=== PATIENT | female | born 1965 | race African-American/Black ===

== ENCOUNTER → 2017-01-13 | Day surgery (SDC) | payer BC, MEDICARE ==
[~2017-01-13] MED LIST: ATOR20TA PO; BYSTOLIC20 MG PO; DAPA10TA PO; IV RINGERS,LACTATED 1000ML 1,000 ML IV SCH; IVAB5TAB PO; LIDOCAINE 1% PF 2 ML VIAL. ID PRN; LIRA0.6P2 SQ; METF-620 PO; MIDAZOLAM HCL/PF 2 MG/2 ML VIAL. IV PRN; PANT20TA2 PO; PROPOFOL 20 ML IV ONE; PROPOFOL 40 ML IV ONE; fentaNYL PF VIAL 100 MCG/2 ML VIAL IV PRN
[2017-01-13 12:26] VITALS: BP 123/87
--- NOTE | 2017-01-14 17:10 | PATHOLOGY ---
PATHOLOGY REPORT * * * * * * * * FINAL DIAGNOSIS: A. Small bowel biopsy: - No significant pathologic abnormalities. B. Gastric antral biopsy: - Chronic gastritis, mild. C. Distal esophagus biopsy: - Segments of hyperplastic squamous esophageal mucosa, esophagogastric mucosa, and gastric mucosa showing chronic inflammation, consistent with reflux esophagitis. D. Mid esophagus biopsy: - Segment of squamous esophageal mucosa identified. E. Terminal ileum biopsy: - No significant pathologic abnormalities. F. Colon biopsy, cecum: - Focally hyperplastic mucosal-associated lymphoid aggregates. G. Colon biopsy, ascending colon polyp: - Consistent with prominent fold. H. Colon biopsies, transverse colon: - Several hyperplastic mucosal-associated lymphoid aggregates. I. Colon biopsies, descending colon: - No significant pathologic abnormalities. J. Colon biopsies, sigmoid colon: - No significant pathologic abnormalities. K. Rectal biopsies: - Diminutive hyperplastic polyp. COMMENT: Sections of the small bowel biopsy reveal segments of duodenal mucosa containing a single mucosal-associated lymphoid aggregate. There are no sprue-like changes or significant inflammatory changes. Sections of the gastric antral biopsy reveal gastric antral/body transition mucosa showing congestion and mild chronic inflammation. An immunoperoxidase stain for Helicobacter is obtained. No Helicobacter organisms are identified. Sections of the distal esophageal biopsy reveal segments of hyperplastic squamous esophageal mucosa, esophagogastric mucosa and gastric mucosa showing mild to moderate chronic inflammation. The findings are consistent with reflux. There is no evidence of Poon's change, dysplasia, or malignancy. Sections of the mid esophagus biopsy reveal a small segment of squamous esophageal mucosa showing no significant pathologic abnormalities. Sections of the terminal ileum biopsy reveal small intestine mucosa showing no sprue-like changes or significant inflammatory changes. Sections of the cecal biopsy reveal segments of colonic mucosa containing several focally hyperplastic mucosal-associated lymphoid aggregates. Sections of the ascending colon polyp biopsy reveal a segment of colonic mucosa consistent with prominent fold. There are no adenomatous changes or evidence of malignancy. Sections of the transverse colon biopsy reveal segments of colonic mucosa containing several hyperplastic mucosal-associated lymphoid aggregates. Sections of the descending colon and sigmoid colon biopsies reveal segments of colonic mucosa showing no significant pathologic abnormalities. Sections of the rectal biopsy reveal segments of rectal mucosa and a diminutive hyperplastic polyp. The sections of colon and rectum show no evidence of a chronic destructive colitis, lymphocytic colitis, or collagenous colitis. (JPM:mgr; 01/14/2017) Special Stain Performed: Immunoperoxidase stain for Helicobacter (B1) REPORT ELECTRONICALLY SIGNED BY: Duong Rice M.D. DATE/TIME: 01/14/2017 17:09 * * * * * * * * GROSS PATHOLOGY: A. Received in formalin labeled "Taisha Pepe, small bowel BX," are 3 segments of blackwell soft tissue measuring 1.2 x 0.3 x 0.3 cm in aggregate dimensions and ranging from 0.3 to 0.4 cm in maximum dimension. The specimen is submitted entirely in cassette A1. B. Received in formalin labeled "Taisha Pepe, gastric antrum BX," is a segment of blackwell soft tissue measuring 0.5 cm in maximum dimension. The specimen is submitted entirely in cassette B1. C. Received in formalin labeled "Taisha Pepe, distal esophagus BX," are 3 segments of blackwell soft tissue measuring 1.2 x 0.4 x 0.3 cm in aggregate dimensions and ranging from 0.3 to 0.6 cm in maximum dimension. The specimen is submitted entirely in cassette C1. D. Received in formalin labeled "Taisha Pepe, mid esophagus BX," is a segment of blackwell soft tissue measuring 0.4 cm in maximum dimension. The specimen is submitted entirely in cassette D1. E. Received in formalin labeled "Taisha Pepe, terminal ileum BX," is a segment of blackwell soft tissue measuring 0.5 cm in maximum dimension. The specimen is submitted entirely in cassette E1. F. Received in formalin labeled "Taisha Pepe, cecal BX," are 2 segments of blackwell soft tissue measuring 0.6 x 0.4 x 0.4 cm in aggregate dimensions and ranging from 0.3 to 0.3 cm in maximum dimension. The specimen is submitted entirely in cassette F1. G. Received in formalin labeled "Taisha Pepe, ascending colon polyp," is a segment of blackwell soft tissue measuring 0.3 cm in maximum dimension. The specimen is submitted entirely in cassette G1. H. Received in formalin labeled "Taisha Pepe, transverse colon BX," are 2 segments of blackwell soft tissue measuring 0.5 x 0.3 x 0.3 cm in aggregate dimensions and ranging from 0.3 to 0.4 cm in maximum dimension. The specimen is submitted entirely in cassette H1. I. Received in formalin labeled "Taisha Pepe, descending colon BX," are 2 segments of blackwell soft tissue measuring 0.7 x 0.3 x 0.3 cm in aggregate dimensions and ranging from 0.3 to 0.5 cm in maximum dimension. The specimen is submitted entirely in cassette I1. J. Received in formalin labeled "Taisha Haile sigmoid BX," are 2 segments of blackwell soft tissue measuring 0.4 x 0.2 x 0.2 cm in aggregate dimensions and ranging from 0.2 to 0.2 cm in maximum dimension. The specimen is submitted entirely in cassette J1. K. Received in formalin labeled "Taisha Haile rectal BX," is a segment of blackwell soft tissue measuring 0.4 cm in maximum dimension. The specimen is submitted entirely in cassette K1. (TSD; 01/13/2017) INITIAL CPT CODE(S): A; 11046 B; 51453, 33985 C; 46694 D; 27835 E; 10680 F; 56173 G; 40363 H; 41924 I; 89340 J; 10066 K; 82877 Professional services performed [place] [facility] [place] [address] Technical services performed by [facility] at [address] [place] [address], [facility] [address] [address]. SPECIMEN(S) RECEIVED: A.Small bowel biopsy B.Gastric antrum biopsy C.Distal esophagus biopsy D.Mid esophagus biopsy E.Terminal ileum biopsy F.Cecal biopsy G.Ascending colon polyp biopsy H.Transverse colon biopsy I.Descending colon biopsy J.Sigmoid biopsy K.Rectal biopsy CLINICAL HISTORY: GERD PATIENT: TAISHA HAILE /AGE: 205/14/1965 (Age: 51) PATIENT #: [id number] ALT CASE #: SPECIMEN COLLECTION DATE: 01/13/2017 SPECIMEN RECEIVED DATE: 01/13/2017 [facility] - [address] [place] [address] - PHONE: [phone] * * * END OF REPORT * * *
== END | disposition home or self-care (01) ==
LOC: SURG 10:06
PROVIDERS: ATTEND Internal Medicine Gastroenterology
DX: K64.0 First degree hemorrhoids (principal); K63.89 Other specified diseases of intestine; K62.89 Other specified diseases of anus and rectum; D12.2 Benign neoplasm of ascending colon; K52.9 Noninfective gastroenteritis and colitis, unspecified; K62.5 Hemorrhage of anus and rectum; K21.0 Gastro-esophageal reflux disease with esophagitis; K22.2 Esophageal obstruction; E11.42 Type 2 diabetes mellitus with diabetic polyneuropathy; Z87.440 Personal history of urinary (tract) infections; Z86.69 Personal history of other diseases of the nervous system and sense organs; Z86.39 Personal history of other endocrine, nutritional and metabolic disease; Z87.39 Personal history of other diseases of the musculoskeletal system and connective tissue; Z88.6 Allergy status to analgesic agent; Z88.8 Allergy status to other drugs, medicaments and biological substances
CPT/HCPCS: 43239; 43453; 45380; J2704; 88305; 88342

== ENCOUNTER → 2017-02-18 | Outpatient (CLI) | payer BC, MEDICARE ==
[2017-01-13 12:26] VITALS: BP 123/87
[~2017-02-18] MED LIST changes: -IV RINGERS,LACTATED 1000ML 1,000 ML IV SCH; -LIDOCAINE 1% PF 2 ML VIAL. ID PRN; -MIDAZOLAM HCL/PF 2 MG/2 ML VIAL. IV PRN; -PROPOFOL 20 ML IV ONE; -PROPOFOL 40 ML IV ONE; -fentaNYL PF VIAL 100 MCG/2 ML VIAL IV PRN
--- NOTE | 2017-02-18 16:41 | RAD ---
UPPER EXT JOINT WO CONT RIGHT dated 02/18/2017 3:30 PM Indication: RIGHT SHOULDER PAIN, 3 PRIOR ROTATOR CUFF SX, NO PRIORS . Pain. Comparison: No comparison is available. Technique: Routine multiplanar multisequence imaging performed. . Findings: There is evidence of prior rotator cuff repair with suture anchors at the lateral humeral head. The repaired cuff is thinned and irregular in signal with areas of articular surface partial tearing of the supraspinatus and infraspinatus. No definite recurrent full-thickness tear. There is retraction of undersurface fibers to about the 12:00 position with the cuff is thinned by about 50-60 percent. Subscapularis is intact. Mild increased signal within the substance of the long head biceps tendon proximally. Extra articular portion courses within the bicipital groove. Evidence of prior subacromial decompression and distal clavicle resection. No significant undersurface spurring. Trace amount of subacromial/subdeltoid bursal fluid. Glenoid labrum is grossly intact. No apparent labral tear or para labral cyst. No glenohumeral joint effusion or loose body. Bone marrow signal is otherwise homogeneous. No marrow edema. Suprascapular and spinoglenoid notches are clear. No significant muscle edema or muscle atrophy. IMPRESSION: 1. Subacromial decompression and rotator cuff repair. There is estimated 50-60 percent thinning of the cuff substance with articular surface partial tearing of the supraspinatus. No recurrent full-thickness tear. 2. Mild proximal biceps tendinosis. 3. No apparent labral tear. Electronically signed by: Herson Fountain MD (02/18/2017 4:37 PM) [id number]
== END | disposition home or self-care (01) ==
LOC: MRI 15:02
PROVIDERS: ATTEND Orthopaedic Surgery Sports Medicine
DX: M25.511 Pain in right shoulder (principal)
CPT/HCPCS: 73221